=== PATIENT | male | born 1935 | race Caucasian/White ===

== ENCOUNTER 2024-03-24 11:40 | Emergency (ER) | payer MEDICARE, BC, SELFPAY ==
[2024-03-24] VITALS (10 sets, daily range): BP systolic 130–171; BP diastolic 60–117; PULSE 90–104; RESP 18–22; TEMP 36.6–37.5; O2SAT 91–96; BMI 28.7
--- NOTE | 2024-03-24 12:36 | CRLHL7_ITS ---
For Patients: As a result of the Century Cures Act, medical imaging exams and procedure reports are released immediately into your electronic medical record. You may view this report before your referring provider. If you have questions, please contact your health care provider. INDICATION: Unresponsive patient. Abdominal pain and vomiting. Recent flu. TECHNIQUE: Axial images were obtained from the diaphragm to the pubic symphysis. Reformats were obtained in the coronal and sagittal plane. IV Contrast: 98 cc Isovue 370 Oral Contrast: None COMPARISON: None. FINDINGS: Lower chest: Trace bilateral pleural effusions, greater on the right. Calcified right paratracheal lymph node. Pacemaker leads partially included extending to the right atrial appendage and right ventricle. Severe coronary atherosclerosis. Minimal dependent atelectasis. Liver: Unremarkable. Normal in size and attenuation. No masses. Gallbladder and bile ducts: Unremarkable. No stones or inflammation. No biliary dilatation. Spleen: Unremarkable. Normal in size without mass. Pancreas: Moderate pancreatic atrophy. Adrenal glands: Unremarkable. No nodules. Kidneys: Bilateral renal cysts with delayed nephrogram on the right with perinephric and periureteral fat stranding. Nephrolithiasis with obstructing proximal right ureteral stone measuring 7 x 5 millimeters. Moderate right hydronephrosis. Vasculature: Atherosclerosis without abdominal aortic aneurysm. GI tract: Small bowel is decompressed. Colonic diverticulosis. Pelvis: Trace free fluid in the deep pelvis. Reyes catheter within the bladder with small bladder stones as well as calcification within the prostate. Bones: Bilateral sacroiliac osteoarthritis. Old superior endplate fracture L2. IMPRESSION: 1. Nephrolithiasis with moderate right hydronephrosis and obstructing proximal right ureteral stone measuring 7 x 5 millimeters. 2. Trace bilateral pleural effusions, greater on the right. 3. Colonic diverticulosis. Please note that all CT scans at this facility use dose modulation, iterative reconstruction, and/or weight-based dosing when appropriate to reduce radiation dose to as low as reasonably achievable. Dictated by Marcos Nur MD @ 03/24/2024 3:26:09 PM (Electronically Signed)
--- NOTE | 2024-03-24 13:07 | ED_ITS ---
HPI - General Adult General Date Seen: 03/24/24 Chief complaint: Weakness Stated complaint: Weakness Time Seen by Provider: 03/24/24 11:51 Source: family Mode of arrival: EMS Limitations: altered mental status History of Present Illness HPI narrative: Patient is an 88-year-old male here with his son for evaluation of possible dehydration, fatigue, vomiting. Son reports that he had a ?flu with vomiting that started on Saturday, 3 days ago. The vomiting seems to have stopped, son says that the care facility thought he was doing better yesterday but today has been much more sleepy, has not been eating, drinking less today. Patient does not really provide any history. He does say that his stomach hurts. Cannot give me any further details on that. Son is not aware of any diarrhea but he is not sure. He does not believe that he has had a fever. There is no reported cough. Previous medical history and medications are reviewed. 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 There is COVID at the assisted but he has reportedly been testing negative. Related Data Home Medications ?Medication ?Instructions ?Recorded ?Confirmed baclofen 10 mg tablet 10 mg PO BID 03/24/24 03/24/24 calcium 600 mg capsule mg PO 03/24/24 donepezil 10 mg tablet (Aricept) 10 mg PO DAILY 03/24/24 03/24/24 donepezil 5 mg tablet (Aricept) 5 mg PO DAILY 03/24/24 03/24/24 erythromycin 5 mg/gram (0.5 %) eye 1 applic ophthalmic (eye) BID 03/24/24 03/24/[address] 4 % BID 03/24/24 losartan 50 mg tablet (Cozaar) 50 mg PO DAILY 03/24/24 03/24/24 melatonin 3 mg capsule 3 mg PO QHS 03/24/24 03/24/24 pregabalin 50 mg capsule (Lyrica) 50 mg PO BID 03/24/24 03/24/24 rivaroxaban 20 mg tablet (Xarelto) 20 mg PO QPM 03/24/24 03/24/24 sertraline 25 mg tablet 25 mg PO DAILY 03/24/24 03/24/24 simvastatin 40 mg tablet 40 mg PO QPM 03/24/24 03/24/24 tamsulosin 0.4 mg capsule (Flomax) 0.4 mg PO Q24H 03/24/24 03/24/24 Allergies Allergy/AdvReac Type Severity Reaction Status Date / Time No Known Drug Allergies Allergy Verified 03/24/24 14:37 Review of Systems Status of ROS: Reports: unobtainable due to mental status [facility]SH [facility] Social History Non-prescribed substance use: denies use Exam Narrative: Exam Narrative: Vital signs as noted above. In general, a somnolent elderly male. Did awaken to voice but fell promptly back asleep Head: Normocephalic, atraumatic. Eyes: Pupils are equal reactive. Extraocular movements are full. Conjunctivae are normal. ENT: Mucous membranes are dry. Neck: Supple without lymphadenopathy. Heart: Regular rate and rhythm. No murmur or rub. Lungs: Clear anteriorly. No increased work of breathing. Abdomen: Nondistended, soft. Some guarding noted in the right lower quadrant, diffuse upper abdominal tenderness. Extremities: Well perfused. No edema. No calf tenderness. Pulses intact. Neurologic: Patient is somnolent but arouses to voice. Answered a couple of questions then fell back asleep. Speech is fluent. Baseline left hemiparesis. Affect: Normal. Skin: Warm and dry. Well perfused. Const: Vital Signs, click to edit/add: Vital Signs - 24 hr 03/24/24 11:49 Temperature 97.9 F Pulse Rate [Pulse Oximeter] 96 Respiratory Rate 18 Blood Pressure [Ri ght Upper Arm] 148/60 H Pulse Oximetry 96 Oxygen Delivery Me thod Room Air Documenting provider has reviewed patient's vital signs: yes Course Course ED Course: Will establish an IV, give a L of normal saline. Labs and CT of the abdomen and pelvis with contrast is ordered. Diagnostic considerations include gastroenteritis, colitis, diverticulitis, pyelonephritis or kidney stone, appendicitis among others. He was somewhat agitated here, was given 4 mg of morphine for possible pain. Labs showed a normal white blood cell count of 8.1 without significant left shift. He has a hemoglobin 11.3 and platelets of a [id number]. Venous gas shows a pH of 7.45, pCO2 35, normal bicarb. Metabolic panel shows normal renal function and electrolytes, blood sugar of 130. Lactate was 1.2 and LFTs were normal. CRP was elevated at 19. Lipase was normal at 37. UA showed 3+ blood, 0-2 red cells and 0-2 white blood cells. Negative leuks. He did seem more comfortable with the morphine, has been sleeping largely since then. CT scan by my review shows right-sided hydronephrosis and a 7 mm stone in the proximal ureter. I do not see significant stranding around the kidney. No other lab findings to suggest infection aside from elevated CRP which in isolation I think is indeterminate. I was able to talk with Dr. Becerra, who agrees with transfer to [facility]. Patient is anticoagulated and so will not have the stone removed immediately, but can have a stent tomorrow and then be brought back for stone removal in about a week. He has been hemodynamically stable, , does have underlying atrial fibrillation, EKG showed AFib with a ventricular rate of 85. In the absence of fever or other changes, no antibiotics recommended at this time. Awaiting transfer to [facility] with up to an 8 hour delay for beds. Vital Signs Vital signs: Initial Vital Signs Temperature 97.9 F 03/24/24 11:49 Temperature Source Temporal Artery Scan 03/24/24 11:49 Pulse Rate 96 03/24/24 11:49 Respiratory Rate 18 03/24/24 11:49 Blood Pressure 148/60 H 03/24/24 11:49 Blood Pressure Mean 89 03/24/24 11:49 Blood Pressure Position Supine 03/24/24 11:49 Pulse Oximetry 96 03/24/24 11:49 Oxygen Delivery Method Room Air 03/24/24 11:49 Vital Signs Temperature 97.9 F 03/24/24 11:49 Pulse Rate 96 03/24/24 11:49 Respiratory Rate 18 03/24/24 11:49 Blood Pressure 148/60 H 03/24/24 11:49 Pulse Oximetry 96 03/24/24 11:49 Oxygen Delivery Method Room Air 03/24/24 11:49 Temperature 98.9 F 03/24/24 22:00 Pulse Rate 98 03/25/24 01:38 Respiratory Rate 22 03/25/24 01:38 Blood Pressure 135/106 H 03/25/24 01:38 Pulse Oximetry 95 03/25/24 01:38 Oxygen Delivery Method Nasal Cannula 03/25/24 01:38 Oxygen Flow Rate 1 03/25/24 01:38 Medications Administered Medications: Discontinued Medications Generic Name Dose Route Start Last Admin Trade Name Tawanda PRN Reason Stop Dose Admin Sodium Chloride 1,000 mls @ 1,000 mls/hr 03/24/24 12:45 03/24/24 14:35 0.9 % Sodium Chloride 1000 Ml IV 03/24/24 13:44 Infused .Q1H MARIO Infusion Morphine Sulfate 4 mg 03/24/24 14:14 03/24/24 14:36 Morphine 4 Mg/Ml Inj IVP 03/24/24 14:15 4 mg ONCE ONE Administration Ondansetron HCl 4 mg 03/24/24 12:35 03/24/24 13:11 Ondansetron 2 Mg/Ml Inj IVP 03/24/24 12:36 4 mg ONCE ONE Administration Medical Decision Making Lab Data Labs: Lab Results 03/24/24 03/24/24 03/24/24 Range/Units 12:36 13:10 13:17 WBC 8.16 (4.50-11.00) K/uL RBC 3.23 L (4.30-5.90) m/uL Hgb 11.3 L (13.5-17.5) gm/dL Hct 34.0 L (37.0-53.0) % MCV 105 H (80-100) fL MCH 35 H (26-34) pg MCHC 33 (32-36) gm/dL RDW Coeff of Bryan 13.7 (11.5-15.5) % Plt Count 108 L (140-440) K/uL Neut % (Auto) 70.0 (42.0-72.0) % Lymph % (Auto) 7.1 L (20-44) % [place] % (Auto) 21.4 H (0.0-11.0) % Eos % (Auto) 0.0 (0.0-7.0) % Baso % (Auto) 0.4 (0.0-3.0) % Neut # (Auto) 5.71 (1.7-7.0) K/uL Lymph # (Auto) 0.60 L (0.90-2.90) K/uL Gr[place]gs # (Auto) 1.70 H (0.00-0.90) K/UL Eos # (Auto) 0.00 (0.00-0.50) K/uL Baso # (Auto) 0.03 (0.00-0.30) K/uL Abs Immat Gran (auto) 0.09 (0.00-0.30) K/uL Imm/Tot Granulo (auto) 1.1 % VBG pH 7.452 H (7.32-7.43) VBG pCO2 35 L (40-50) mmHG VBG pO2 62.8 H (25-47) mmHG VBG HCO3 25 (21-28) mmol/L Sodium 139 (135-149) mmol/L Potassium 4.1 (3.6-5.1) mmol/L Chloride 107 (96-114) mmol/L Carbon Dioxide 24 (20-32) mmol/L Anion Gap 8 (7-15) mEq/L BUN 30 (7-30) mg/dL Creatinine 1.3 (0.5-1.5) mg/dL Estimated Creat Clear 42.12 Estimated GFR 54 ml/min Glucose 130 H (60-115) mg/dL Lactate 1.2 (0.5-1.9) mmol/L Calcium 8.8 (8.4-10.6) mg/dL Total Bilirubin 1.0 (0.1-1.5) mg/dL Direct Bilirubin 0.3 (0.0-0.5) mg/dL AST 20 (12-35) U/L ALT 11 (4-50) U/L Alkaline Phosphatase 63 (40-150) U/L C-Reactive Protein 19.0 H (0.5-1.0) mg/dL Total Protein 7.1 (6.0-8.3) g/dL Albumin 3.7 (3.3-5.0) g/dL Lipase 37 (23-300) U/L Procalcitonin (<0.50) ng/mL Urine Color Yellow (Yellow) Urine Appearance Slightly Cloudy A (Clear) Urine pH 5.5 (5.0-8.5) Ur Specific [place] >= 1.030 (1.000-1.030) Urine Protein 3+ A (Negative) Urine Glucose (UA) Negative (Negative) Urine Ketones 1+ A (Negative) Urine Blood 3+ A (Negative) Urine Nitrite Negative (Negative) Urine Bilirubin 1+ A (Negative) Urine Urobilinogen 1.0 (0.2-1.0) Ur Leukocyte Esterase Negative (Negative) Urine RBC 0-2 (0-2) Urine WBC 0-2 (0-5) Ur Squamous Epith Cells None (None-Few) Calcium Oxalate Crystal Few A (None) Amorphous Sediment Few A (None) Urine Bacteria None (None) SARS-CoV-2 (PCR) Negative SARS-CoV-2 (Negative) Influenza Type A (PCR) Negative PCR FLU A (Negative) Influenza Type B (PCR) Negative PCR FLU B (Negative) RSV (PCR) Negative PCR RSV (Negative) 03/24/24 Range/Units 20:42 WBC 9.45 (4.50-11.00) K/uL RBC 3.38 L (4.30-5.90) m/uL Hgb 11.8 L (13.5-17.5) gm/dL Hct 35.7 L (37.0-53.0) % MCV 106 H (80-100) fL MCH 35 H (26-34) pg MCHC 33 (32-36) gm/dL RDW Coeff of Bryan 13.7 (11.5-15.5) % Plt Count 106 L (140-440) K/uL Neut % (Auto) 74.7 H (42.0-72.0) % Lymph % (Auto) 4.8 L (20-44) % Griggs % (Auto) 19.2 H (0.0-11.0) % Eos % (Auto) 0.0 (0.0-7.0) % Baso % (Auto) 0.3 (0.0-3.0) % Neut # (Auto) 7.10 H (1.7-7.0) K/uL Lymph # (Auto) 0.50 L (0.90-2.90) K/uL Gr[place]gs # (Auto) 1.80 H (0.00-0.90) K/UL Eos # (Auto) 0.00 (0.00-0.50) K/uL Baso # (Auto) 0.03 (0.00-0.30) K/uL Abs Immat Gran (auto) 0.09 (0.00-0.30) K/uL Imm/Tot Granulo (auto) 1.0 % VBG pH (7.32-7.43) VBG pCO2 (40-50) mmHG VBG pO2 (25-47) mmHG VBG HCO3 (21-28) mmol/L Sodium 138 (135-149) mmol/L Potassium 4.3 (3.6-5.1) mmol/L Chloride 107 (96-114) mmol/L Carbon Dioxide 24 (20-32) mmol/L Anion Gap 7 (7-15) mEq/L BUN 29 (7-30) mg/dL Creatinine 1.2 (0.5-1.5) mg/dL Estimated Creat Clear 45.63 Estimated GFR 59 ml/min Glucose 142 H (60-115) mg/dL Lactate 1.1 (0.5-1.9) mmol/L Calcium 8.6 (8.4-10.6) mg/dL Total Bilirubin (0.1-1.5) mg/dL Direct Bilirubin (0.0-0.5) mg/dL AST (12-35) U/L ALT (4-50) U/L Alkaline Phosphatase (40-150) U/L C-Reactive Protein 20.6 H (0.5-1.0) mg/dL Total Protein (6.0-8.3) g/dL Albumin (3.3-5.0) g/dL Lipase (23-300) U/L Procalcitonin 0.11 (<0.50) ng/mL Urine Color (Yellow) Urine Appearance (Clear) Urine pH (5.0-8.5) Ur Specific [place] (1.000-1.030) Urine Protein (Negative) Urine Glucose (UA) (Negative) Urine Ketones (Negative) Urine Blood (Negative) Urine Nitrite (Negative) Urine Bilirubin (Negative) Urine Urobilinogen (0.2-1.0) Ur Leukocyte Esterase (Negative) Urine RBC (0-2) Urine WBC (0-5) Ur Squamous Epith Cells (None-Few) Calcium Oxalate Crystal (None) Amorphous Sediment (None) Urine Bacteria (None) SARS-CoV-2 (PCR) (Negative) Influenza Type A (PCR) (Negative) Influenza Type B (PCR) (Negative) RSV (PCR) (Negative) Discharge Plan Discharge Prescriptions: No Action losartan [Cozaar] 50 mg tablet 50 mg PO DAILY Xarelto 20 mg tablet 20 mg PO QPM Rx Instructions: must administer with evening meal simvastatin 40 mg tablet 40 mg PO QPM lidocain max st 4 % BID Patient Comments: patch baclofen 10 mg tablet 10 mg PO BID tamsulosin [Flomax] 0.4 mg capsule 0.4 mg PO Q24H melatonin 3 mg capsule 3 mg PO QHS erythromycin 5 mg/gram (0.5 %) ointment 1 applic ophthalmic (eye) BID sertraline 25 mg tablet 25 mg PO DAILY donepezil [Aricept] 5 mg tablet 5 mg PO DAILY donepezil [Aricept] 10 mg tablet 10 mg PO DAILY pregabalin [Lyrica] 50 mg capsule 50 mg PO BID calcium 600 mg capsule PO Follow Up/Referrals: Rasheeda Mcnally MD [Primary Care Provider] -
[2024-03-24] MEDS: ONDANSETRON 2 MG/ML inj 4 MG IVP (13:11)
[2024-03-24] MEDS: 0.9 % SODIUM CHLORIDE 1000 ml 1,000 ML IV (13:12)
[2024-03-24 13:33] LABS: HCO3 VBG 25 mmol/L (21-28); PCO2 VBG 35 mmHG (40-50); PO2 VBG 62.8 mmHG (25-47); pH VBG 7.452 (7.32-7.43)
[2024-03-24 13:34] LABS: Lactate Sepsis w/Reflex* 1.2 mmol/L (0.5-1.9)
[2024-03-24 13:39] LABS: PCR FLU A Negative PCR FLU A (Negative); PCR FLU B Negative PCR FLU B (Negative); PCR RSV Negative PCR RSV (Negative); SARS PCR* Negative SARS-CoV-2 (Negative)
[2024-03-24 13:43] LABS: Appearance Urine Slightly Cloudy (Clear); Bilirubin Urine 1+ (Negative); Blood Urine 3+ (Negative); Color Urine Yellow (Yellow); Glucose Urine Negative (Negative); Ketones Urine 1+ (Negative); Specific Gravity Urine >= 1.030 (1.000-1.030)
[2024-03-24 13:44] LABS: Amorphous Sediment Urine Few; Calcium Oxalate Crystals Urine Few; Leukocyte Esterase Urine Negative (Negative); Nitrite Urine Negative (Negative); Protein Urine 3+ (Negative); RBC Urine 0-2 (0-2); WBC Urine 0-2 (0-5); pH Urine 5.5 (5.0-8.5)
[2024-03-24 13:44] LABS: Basophils Absolute Auto 0.03 K/uL (0.00-0.30); Basophils Percent Auto 0.4 % (0.0-3.0); Hemoglobin* 11.3 gm/dL (13.5-17.5); Immature Granulocytes Abs Auto 0.09 K/uL (0.00-0.30); Immature Granulocytes Pct Auto 1.1 %; Lymphocytes Percent Auto 7.1 % (20-44); Mean Corpuscular HGB Conc 33 gm/dL (32-36); Mean Corpuscular Hemoglobin 35 pg (26-34); Mean Corpuscular Volume 105 fL (80-100); Monocytes Percent Auto 21.4 % (0.0-11.0); Neutrophils Absolute Auto 5.71 K/uL (1.7-7.0); Platelet Count* 108 K/uL (140-440); RDW Coefficient of Variation % 13.7 % (11.5-15.5); Red Blood Count 3.23 m/uL (4.30-5.90); White Blood Count* 8.16 K/uL (4.50-11.00)
[2024-03-24 14:08] LABS: Albumin* 3.7 g/dL (3.3-5.0); Chloride* 107 mmol/L (96-114); Sodium* 139 mmol/L (135-149)
[2024-03-24 14:09] LABS: Potassium* 4.1 mmol/L (3.6-5.1); Slide Review Reflex No
[2024-03-24 14:11] LABS: Alkaline Phosphatase* 63 U/L (40-150); Anion Gap 8 mEq/L (7-15); Aspartate Amino Transferase* 20 U/L (12-35); Bilirubin Direct* 0.3 mg/dL (0.0-0.5); Blood Urea Nitrogen* 30 mg/dL (7-30); Carbon Dioxide* 24 mmol/L (20-32); Creatinine* 1.3 mg/dL (0.5-1.5); Est. Creatinine Clearance* 42.12; Estimated Glomerular Filt Rate 54 ml/min; Total Protein* 7.1 g/dL (6.0-8.3)
[2024-03-24 14:12] LABS: Alanine Aminotransferase* 11 U/L (4-50); Calcium* 8.8 mg/dL (8.4-10.6); Glucose* 130 mg/dL (60-115); Lipase* 37 U/L (23-300)
[2024-03-24] MEDS: MORPHINE 4 MG/ML INJ IVP (14:36)
--- NOTE | 2024-03-24 16:31 | ED.NURSE ---
[facility] updated with plan to transfer to [place]
--- NOTE | 2024-03-24 20:19 | CRLHL7_ITS ---
For Patients: As a result of the Century Cures Act, medical imaging exams and procedure reports are released immediately into your electronic medical record. You may view this report before your referring provider. If you have questions, please contact your health care provider. Indication: Somnolence. Technique: Noncontrast CT of the head with multiplanar reconstruction utilizing bone and soft tissue algorithms. Comparison: None available. Findings: No acute intracranial hemorrhage. The mims-white matter interface is preserved. Moderate diffuse parenchymal volume loss. No ventricular obstruction. No abnormal extra-axial fluid collection. The skull base and calvarium are within normal limits. The orbits are unremarkable. There is mild scattered mucosal thickening within the ethmoid and inferior maxillary sinuses. Impression: 1. No acute intracranial abnormality. 2. Moderate diffuse parenchymal volume loss. 3. Mild scattered paranasal sinus mucosal thickening likely as sequela of chronic sinusitis. Please note that all CT scans at this facility use dose modulation, iterative reconstruction, and/or weight-based dosing when appropriate to reduce radiation dose to as low as reasonably achievable. Dictated by Krishan Teran MD @ 03/24/2024 9:16:38 PM (Electronically Signed)
[2024-03-24 20:49] LABS: Lactate Sepsis w/Reflex* 1.1 mmol/L (0.5-1.9)
[2024-03-24 20:53] LABS: Basophils Absolute Auto 0.03 K/uL (0.00-0.30); Basophils Percent Auto 0.3 % (0.0-3.0); Hematocrit 35.7 % (37.0-53.0); Hemoglobin* 11.8 gm/dL (13.5-17.5); Immature Granulocytes Abs Auto 0.09 K/uL (0.00-0.30); Lymphocytes Percent Auto 4.8 % (20-44); Mean Corpuscular HGB Conc 33 gm/dL (32-36); Mean Corpuscular Hemoglobin 35 pg (26-34); Mean Corpuscular Volume 106 fL (80-100); Monocytes Percent Auto 19.2 % (0.0-11.0); Neutrophils Percent Auto 74.7 % (42.0-72.0); Platelet Count* 106 K/uL (140-440); RDW Coefficient of Variation % 13.7 % (11.5-15.5); Red Blood Count 3.38 m/uL (4.30-5.90); White Blood Count* 9.45 K/uL (4.50-11.00)
[2024-03-24 21:07] LABS: Slide Review Reflex No
[2024-03-24 21:08] LABS: Chloride* 107 mmol/L (96-114); Potassium* 4.3 mmol/L (3.6-5.1); Sodium* 138 mmol/L (135-149)
[2024-03-24 21:11] LABS: Anion Gap 7 mEq/L (7-15); Blood Urea Nitrogen* 29 mg/dL (7-30); Carbon Dioxide* 24 mmol/L (20-32); Creatinine* 1.2 mg/dL (0.5-1.5); Est. Creatinine Clearance* 45.63; Estimated Glomerular Filt Rate 59 ml/min
[2024-03-24 21:12] LABS: Calcium* 8.6 mg/dL (8.4-10.6); Glucose* 142 mg/dL (60-115)
[2024-03-24 21:29] LABS: Procalcitonin* 0.11 ng/mL (<0.50)
[2024-03-24 21:32] LABS: C Reactive Protein* 20.6 mg/dL (0.5-1.0)
[2024-03-25 01:38] VITALS: BP 135/106; PULSE 98; RESP 22; O2SAT 95
== END 2024-03-25 01:44 | disposition short-term general hospital (02) ==
PROVIDERS: Emergency Provider Emergency Medicine; PCP Family Medicine
DX: N13.0 Hydronephrosis with ureteropelvic junction obstruction (principal)
CPT/HCPCS: 36415; 70450; 74177; 80048; 80076; 81001; 82803; 83605; 83690; 84145; 85025; 86140; 87631; 93005; 94761; 96374; 96375; 99284; 99285; J2270; J2405; J7030; Q9967